=== PATIENT | male | born 1985 | race Hispanic/Latino ===

== ENCOUNTER 2024-11-22 12:02 | Inpatient (IN) | payer BC ==
[~2024-11-22] VITALS: Ht 170.2 cm; Wt 93.0 kg
[2024-11-22] MEDS ORDERED: IOPAMIDOL 370 MG/ML 100 ML INFUS..BTL INJ ONE (12:46)
[2024-11-22] MEDS: SODIUM CHLORIDE 0.9% 1000ML 1,000 ML IV SCH (12:48)
[2024-11-22 14:59] VITALS: TEMP 97.7
[2024-11-22] MEDS ORDERED: ASPIRIN 81 MG CHEW TAB ONE ×2 (15:34→15:37)
[2024-11-22] MEDS: ASPIRIN 81 MG CHEW TAB PO ONE ×2 (15:44→17:48)
[2024-11-22 16:17] VITALS: PULSE 63; RESP 16
[2024-11-22 18:00] VITALS: BP 127/71; PULSE 74; RESP 20; TEMP 97.9; O2SAT 97
[2024-11-22] MEDS ORDERED: LISINOPRIL10 MG PO (18:10)
[2024-11-22] MEDS ORDERED: BUPROPION XL150 MG PO (18:10)
[2024-11-22 20:00] VITALS: BP 117/67; PULSE 65; RESP 20; TEMP 98.2; O2SAT 99
[2024-11-23] VITALS (8 sets, daily range): BP systolic 102–128; BP diastolic 48–75; PULSE 54–68; RESP 18–20; TEMP 97.6–98.5; O2SAT 97–99
[2024-11-23 06:03] LABS: CHOL/HDL RATIO 4.4 (3.9-4.7)
[2024-11-23 07:16] LABS: TROPONIN I 0.02 ng/mL (0-0.300)
[2024-11-23] MEDS ORDERED: ALBUTEROL/IPRATROPIUM 3 ML NEB NEB PRN (11:00)
[2024-11-23] MEDS ORDERED: DOCUSATE SODIUM 100 MG CAP PO PRN (11:00)
[2024-11-23] MEDS: SODIUM CHLORIDE 0.9% 1000ML 1,000 ML IV SCH (11:00)
[2024-11-23] MEDS ORDERED: METOPROLOL TARTRATE INJ 1 MG/ML VIAL IV PRN (11:00)
[2024-11-23] MEDS: FAMOTIDINE 20 MG TAB PO SCH (12:39)
[2024-11-23] MEDS: ENOXAPARIN SOD INJ 40 MG/0.4 ML SYR SC SCH (16:50)
[2024-11-23] MEDS ORDERED: MELATONIN 3 MG TAB PO PRN (21:00)
[2024-11-24] VITALS (9 sets, daily range): BP systolic 114–126; BP diastolic 63–82; PULSE 59–74; RESP 16–20; TEMP 97.6–98; O2SAT 95–100
[2024-11-24 05:34] LABS: BASOPHILS % 0.6 % (0.0-1.0); EOSINOPHILS # (AUTO) 0.2 (0.0-0.4); EOSINOPHILS % 3.5 % (0.0-6.0); HEMATOCRIT 41.8 % (38.2-49.6); HEMOGLOBIN 14.3 g/dL (14.0-18.0); LYMPHOCYTES # (AUTO) 2.4 (1.0-3.2); LYMPHOCYTES % 35.7 % (18.0-39.1); MEAN CORPUSCULAR HEMOGLOBIN 34.5 pg (28-32); MEAN CORPUSCULAR HGB CONC 34.2 g/dL (31-35); MEAN CORPUSCULAR VOLUME 100.7 fL (81-99); MONOCYTES # (AUTO) 0.6 (0.2-0.8); MONOCYTES % 9.6 % (4.4-11.3); NEUTROPHILS # (AUTO) 3.3 (2.1-6.9); NEUTROPHILS % 50.3 % (38.7-80.0); PLATELET COUNT 194 x10e3/uL (140-360); RED BLOOD COUNT 4.15 x10e6/uL (4.3-5.7); RED CELL DISTRIBUTION WIDTH 11.3 % (11.7-14.4); WHITE BLOOD COUNT 6.64 x10e3/uL (4.8-10.8)
[2024-11-24 06:21] LABS: CALCIUM 8.3 mg/dL (8.4-10.2); CREATININE, SERUM 0.87 mg/dL (0.72-1.25); MAGNESIUM 1.9 MG/DL (1.3-2.1); PHOSPHORUS 3.4 MG/DL (2.3-4.7)
[2024-11-24 06:28] LABS: TROPONIN I 0.005 ng/mL (0-0.300)
[2024-11-24] MEDS: BUPROPION HCL 150 MG TABCR PO SCH (09:21)
[2024-11-24] MEDS ORDERED: METOPROLOL TARTRATE INJ 1 MG/ML VIAL ONE (10:57)
[2024-11-24] MEDS ORDERED: NITROGLYCERIN 0.4 MG SUBL ONE (10:57)
[2024-11-24] MEDS ORDERED: SODIUM CHLORIDE 0.9% 100 ML ONE (15:52)
[2024-11-24] MEDS ORDERED: IOPAMIDOL 370 MG/ML 100 ML INFUS..BTL INJ ONE (15:52)
[2024-11-25] VITALS: BP 108/58; PULSE 80; RESP 18; TEMP 97.7; O2SAT 99
[2024-11-25 04:00] VITALS: BP 111/72; PULSE 58; RESP 18; TEMP 97.8; O2SAT 100
[2024-11-25 06:43] LABS: BASOPHILS % 0.6 % (0.0-1.0); EOSINOPHILS # (AUTO) 0.2 (0.0-0.4); EOSINOPHILS % 3.6 % (0.0-6.0); HEMATOCRIT 43.1 % (38.2-49.6); HEMOGLOBIN 14.8 g/dL (14.0-18.0); LYMPHOCYTES # (AUTO) 2.1 (1.0-3.2); LYMPHOCYTES % 31.9 % (18.0-39.1); MEAN CORPUSCULAR HEMOGLOBIN 34.3 pg (28-32); MEAN CORPUSCULAR HGB CONC 34.3 g/dL (31-35); MONOCYTES # (AUTO) 0.6 (0.2-0.8); MONOCYTES % 9.4 % (4.4-11.3); NEUTROPHILS # (AUTO) 3.6 (2.1-6.9); PLATELET COUNT 198 x10e3/uL (140-360); RED BLOOD COUNT 4.31 x10e6/uL (4.3-5.7); RED CELL DISTRIBUTION WIDTH 11.3 % (11.7-14.4); WHITE BLOOD COUNT 6.59 x10e3/uL (4.8-10.8)
[2024-11-25 07:11] LABS: ANION GAP 14.7 mmol/L (8-16); CALCIUM 8.8 mg/dL (8.4-10.2); CREATININE, SERUM 0.89 mg/dL (0.72-1.25); MAGNESIUM 1.9 MG/DL (1.3-2.1); PHOSPHORUS 4.4 MG/DL (2.3-4.7); POTASSIUM 3.7 mmol/L (3.5-5.1)
[2024-11-25 08:00] VITALS: BP 123/80; PULSE 57; RESP 17; TEMP 97.5; O2SAT 96
[2024-11-25 08:35] VITALS: BP 123/80; PULSE 57; RESP 17; TEMP 97.5; O2SAT 96
[2024-11-25] MEDS ORDERED: ASPIRIN EC81 MG PO (11:34)
[2024-11-25] MEDS ORDERED: FAMOTIDINE20 MG PO (11:34)
[2024-11-25 11:46] VITALS: BP 151/94; PULSE 66; RESP 18; TEMP 98.3; O2SAT 100
== END 2024-11-25 13:00 | disposition home or self-care (01) | DRG 558 ==
LOC: FSED 12:08 → ERHOLD 15:46 → MED/SURG 17:23 → OBSVTOIN 11-24 10:24
PROVIDERS: ADMIT Internal Medicine; ATTEND Internal Medicine
DX: M62.82 Rhabdomyolysis (principal); I20.0 Unstable angina; F41.9 Anxiety disorder, unspecified; I11.9 Hypertensive heart disease without heart failure; N20.0 Calculus of kidney; R74.01 Elevation of levels of liver transaminase levels; D75.1 Secondary polycythemia; E86.0 Dehydration; E66.9 Obesity, unspecified; Z68.32 Body mass index [BMI] 32.0-32.9, adult; Z87.891 Personal history of nicotine dependence
CPT/HCPCS: 36415; 71260; 75574; 80048; 80061; 80076; 81003; 82550; 82553; 83735; 84100; 84484; 85025; 93005; 94799; 99284; G0378; J1650; J7030; J7050; Q9967